=== PATIENT | male | born 1995 | race Caucasian/White ===

== ENCOUNTER 2018-08-26 07:44 | Emergency (ER) | payer MEDICAID ==
[~2018-08-26] VITALS: Ht 177.8 cm; Wt 68.2 kg
[2018-08-26 08:03] VITALS: BP 130/88
[2018-08-26] MEDS ORDERED: TETanus/Pertussis (Acell)/Diphther VAC/PF (Tdap-Adult) 0.5ml syringe IM ONE (08:45)
[2018-08-26] MEDS ORDERED: LIDOcaine 1% w/epiNEPHrine 1:200,000 30ml vial IM ONE (08:45)
== END 2018-08-26 10:52 | disposition home or self-care (01) ==
LOC: ER 07:45
DX: S61.412A Laceration without foreign body of left hand, initial encounter (principal); W18.39XA Other fall on same level, initial encounter; Y93.89 Activity, other specified; Y92.830 Public park as the place of occurrence of the external cause; Y99.8 Other external cause status
CPT/HCPCS: 12002; 90471; 90715; 99283; J3490

== ENCOUNTER 2019-06-22 23:07 | Emergency (ER) | payer MEDICAID, OTHER ==
[~2019-06-22] VITALS: Ht 177.8 cm; Wt 70.5 kg
[2019-06-22 23:08] VITALS: BP 125/66
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
--- NOTE | 2019-06-22 23:19 | NUR ---
OFFICER TOOK PT TO THE BR.
== END 2019-06-22 23:28 ==
LOC: ER 23:07
DX: Z02.89 Encounter for other administrative examinations (principal)
CPT/HCPCS: 99283

== ENCOUNTER 2021-10-24 12:21 | Emergency (ER) | payer MEDICAID ==
[~2021-10-24] VITALS: Ht 177.8 cm; Wt 68.2 kg
[2021-10-24 13:23] LABS: BASOPHILS % (AUTO) 0.7 % (0-1); EOSINOPHILS # (AUTO) 0.1 X10'3 (0-0.9); EOSINOPHILS % (AUTO) 0.7 % (0-6); HEMATOCRIT 48.3 % (42.0-52.0); HEMOGLOBIN 16.4 g/dl (14.0-17.9); LYMPHOCYTES # (AUTO) 2.7 X10'3 (1.1-4.8); MEAN CORPUSCULAR HEMOGLOBIN 29.7 PG (27.0-31.0); MEAN CORPUSCULAR VOLUME 87.2 FL (78-98); MEAN PLATELET VOLUME 9.7 FL (7.4-10.4); MONOCYTES # (AUTO) 0.7 X10'3 (0-0.9); MONOCYTES % (AUTO) 10.7 % (2-12); NEUTROPHILS # (AUTO) 3.5 X10'3 (1.8-7.7); NEUTROPHILS % (AUTO) 49.9 % (42-75); PLATELET COUNT 199 X10'3 (140-440); RED BLOOD COUNT 5.54 X10'6 (4.70-6.10); RED CELL DISTRIBUTION WIDTH 13.3 % (11.5-14.5)
[2021-10-24 13:23] LABS: CLARITY,URINE CLEAR (Clear); COLOR,URINE YELLOW (Yellow); GLUCOSE, URINE NEGATIVE (Neg); KETONES,URINE NEGATIVE (Neg); LEUKOCYTE ESTERASE ,URINE NEGATIVE (Neg); NITRITES, URINE NEGATIVE (Neg); OCCULT BLOOD,URINE NEGATIVE (Neg); PROTEIN,URINE TRACE mg/dl (Neg); UA COLLECTION TYPE CLN CATCH MIDSTREAM
[2021-10-24 13:29] LABS: BACTERIA,URINE NONE SEEN /HPF (Neg); FINE GRANULAR CAST 0-3 /LPF (NEGATIVE); MUCUS STRANDS MANY /LPF (Neg); RBC,URINE NONE SEEN /HPF (0-2); SQUAMOUS EPITHELIAL CELL,UR NONE SEEN /LPF (FEW); WBC,URINE 0-4 /HPF (0-4)
[2021-10-24 13:45] LABS: ALANINE AMINOTRANSFERASE 43 U/L (12-78); ALBUMIN 4.5 G/DL (3.4-5.0); ALBUMIN/GLOBULIN RATIO 1.2 (1.1-1.5); ALKALINE PHOSPHATASE 91 IU/L (46-116); AMYLASE 41 U/L (25-115); ANION GAP 8 (8-16); ASPARTATE AMINO TRANSFERASE 25 U/L (10-37); BILIRUBIN,TOTAL 0.3 MG/DL (0.1-1.0); BLOOD UREA NITROGEN 9 MG/DL (7-18); BUN/CREATININE RATIO 9.9 (5.4-32.0); CALCIUM 8.7 MG/DL (8.5-10.1); CHLORIDE 106 MMOL/L (99-107); CREATININE 0.91 MG/DL (0.60-1.10); GLUCOSE 101 MG/DL (70-104); LIPASE 62 U/L (73-393); POTASSIUM 4.3 MMOL/L (3.5-5.1); SODIUM 144 MMOL/L (135-145); TOTAL CARBON DIOXIDE 29.7 MMOL/L (24-32); TOTAL PROTEIN 8.2 G/DL (6.4-8.2); eGFR > 90 ML/MIN
[2021-10-24] MEDS ORDERED: PANT-47 PO (14:17)
[2021-10-24 14:22] VITALS: BP 129/74
== END 2021-10-24 14:42 | disposition home or self-care (01) ==
LOC: ER 12:21
DX: R10.12 Left upper quadrant pain (principal); Z90.49 Acquired absence of other specified parts of digestive tract; Z79.899 Other long term (current) drug therapy
CPT/HCPCS: 36415; 80053; 81001; 82150; 83690; 85025; 99283

== ENCOUNTER 2021-10-30 20:41 | Emergency (ER) | payer MEDICAID ==
[~2021-10-30 20:41] MED LIST: PANT-47 PO
== END 2021-10-30 21:30 | disposition left against medical advice (07) ==
LOC: ER 20:42
DX: R10.9 Unspecified abdominal pain (principal); Z53.21 Procedure and treatment not carried out due to patient leaving prior to being seen by health care provider

== ENCOUNTER 2024-03-20 20:00 | Emergency (ER) | payer MEDICAID ==
[~2024-03-20] VITALS: Ht 177.8 cm; Wt 81.8 kg
[2024-03-20 20:29] LABS: BASOPHILS # (AUTO) 0.1 X10'3 (0-0.2); BASOPHILS % (AUTO) 0.6 % (0-1); EOSINOPHILS % (AUTO) 0.4 % (0-6); HEMATOCRIT 44.9 % (42.0-52.0); HEMOGLOBIN 15.2 g/dl (14.0-17.9); LYMPHOCYTES # (AUTO) 3.1 X10'3 (1.1-4.8); LYMPHOCYTES % (AUTO) 31.1 % (21-51); MEAN CORPUSCULAR HEMOGLOBIN 29.4 PG (27.0-31.0); MEAN CORPUSCULAR HGB CONC 33.8 g/dL (33.0-36.5); MEAN CORPUSCULAR VOLUME 86.8 FL (78-98); MEAN PLATELET VOLUME 9.5 FL (7.4-10.4); MONOCYTES % (AUTO) 10.3 % (2-12); NEUTROPHILS # (AUTO) 5.7 X10'3 (1.8-7.7); NEUTROPHILS % (AUTO) 57.6 % (42-75); PLATELET COUNT 205 X10'3 (140-440); RED BLOOD COUNT 5.17 X10'6 (4.70-6.10); RED CELL DISTRIBUTION WIDTH 13.4 % (11.5-14.5)
[2024-03-20 20:47] LABS: ALANINE AMINOTRANSFERASE 40 U/L (12-78); ALBUMIN 4.9 G/DL (3.4-5.0); ALBUMIN/GLOBULIN RATIO 1.3 (1.1-1.5); ALKALINE PHOSPHATASE 89 IU/L (46-116); ANION GAP 10 (8-16); ASPARTATE AMINO TRANSFERASE 31 U/L (10-37); BILIRUBIN,TOTAL 0.5 MG/DL (0.1-1.0); BLOOD UREA NITROGEN 8 MG/DL (7-18); CALCIUM 9.5 MG/DL (8.5-10.1); CHLORIDE 102 MMOL/L (99-107); GLUCOSE 112 MG/DL (70-104); POTASSIUM 3.4 MMOL/L (3.5-5.1); SODIUM 139 MMOL/L (135-145); TOTAL CARBON DIOXIDE 26.8 MMOL/L (24-32); TOTAL PROTEIN 8.6 G/DL (6.4-8.2); eCRCL 143 ML/MIN; eGFR > 90 ML/MIN
[2024-03-20 20:58] LABS: PRO BRAIN NATRIURETIC PEPTIDE < 30 PG/ML (0-125)
[2024-03-21] MEDS ORDERED: MECL-226 PO (01:30)
[2024-03-21] MEDS: meclizine 12.5mg tablet PO ONE (01:47)
[2024-03-21 01:51] VITALS: BP 125/83; PULSE 68; RESP 18; TEMP 98.6; O2SAT 99
== END 2024-03-21 01:45 | disposition home or self-care (01) ==
LOC: ER 20:02
DX: R07.89 Other chest pain (principal); I49.8 Other specified cardiac arrhythmias; Z90.49 Acquired absence of other specified parts of digestive tract; Z79.899 Other long term (current) drug therapy
CPT/HCPCS: 36415; 71045; 80053; 83880; 84484; 85025; 93005; 99285; J8597

== ENCOUNTER 2025-01-12 05:49 | Emergency (ER) | payer MEDICAID ==
[~2025-01-12] VITALS: Ht 180.3 cm; Wt 90.0 kg
[~2025-01-12 05:49] MED LIST changes: +MECL-226 PO
[2025-01-12] MEDS: LIDOcaine 1% (10mg/ml) 2ml vial SQ ONE (07:15)
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
[2025-01-12] MEDS: LIDOcaine 1% 30ml preserv. free vial IJ STA (07:28)
[2025-01-12] MEDS: MIDAZolam 5mg/ml 2ml vial IV ONE (08:33)
[2025-01-12] MEDS: fentaNYL/PF 50MCG/1 ML 2ML syringe IV ONE (08:33)
--- NOTE | 2025-01-12 09:12 | RADIOLOGY REPORT ---
DI SHOULDER LTD 1 VIEW ONLY INDICATION: Shoulder Pain ,left post reduction TECHNICAL DATA: 1 views were obtained of the right shoulder. COMPARISON: DI SHOULDER LTD 1 VIEW ONLY on DOS: 01/12/25, DI SHOULDER, COMPLETE (MIN 2 VWS) on DOS: 01/12/25 FINDINGS: There is no fracture or focal bone abnormality. The glenohumeral joint is normally maintained. The acromioclavicular joint appears mildly .. The humeral head is not high riding. Adjacent soft tissues are within normal limits. IMPRESSION: Mild left AC joint separation, improved compared to prior.
--- NOTE | 2025-01-12 09:12 | RADIOLOGY REPORT ---
PROCEDURE: Right shoulder radiograph. INDICATION: BASELINE,RIGHT - comparison view TECHNIQUE: Single frontal view of the right shoulder COMPARISON: None. FINDINGS: Image is labeled right shoulder. There is no evidence of fracture. IMPRESSION: 1. No fracture in the right shoulder.
[2025-01-12 09:37] LABS: MEAN PLATELET VOLUME 9.7 FL (7.4-10.4); RED CELL DISTRIBUTION WIDTH 13.7 % (11.5-14.5)
[2025-01-12 09:54] LABS: CREATININE 0.77 MG/DL (0.60-1.10); ETHANOL 146 MG/DL (<10); TOTAL CARBON DIOXIDE 29.0 MMOL/L (24-32); eCRCL 152 ML/MIN; eGFR > 90 ML/MIN
--- NOTE | 2025-01-12 10:15 | RADIOLOGY REPORT ---
CLINICAL INFORMATION: 30 years old, Male; SHOULDER PAIN. TECHNIQUE: Axial CT images of the left shoulder were obtained without IV contrast. Coronal and sagittal reformatted images were obtained, reviewed, and stored. All CT scans at this medical facility are performed using dose modulation techniques as appropriate to a performed exam including the followin g: Automated exposure control was utilized; adjustment of the MA and/or KV according to patient size; and use of iterative reconstruction technique. CTDIvol = 19.18 mGy DLP = 438.91 mGy-cm COMPARISON: DI SHOULDER, COMPLETE (MIN 2 VWS) on DOS: 01/12/25 FINDINGS: There is no evidence of acute fracture. There is elevation of the distal left clavicle, with the inferior margin of the left clavicle just above the level of the superior margin of the acromion, consistent with type 3 acromioclavicular injury. Coracoclavicular distance is approximately 2 cm. There is adjacent soft tissue swelling, including near the deltoid and trapezial attachments to the distal clavicle. There are left axillary lymph nodes measuring less than 1 cm in short axis dimension with normal reniform shape and fatty marielena, likely reactive lymph nodes. No significant abnormality identified in the visualized portions of the left lung, although respiratory motion artifact limits evaluation for subtle findings in the visualized portions of the left lung. IMPRESSION: 1. Findings consistent with type 3 acromioclavicular injury as described above. 2. No evidence of acute fracture. 3. Additional findings as detailed above.
[2025-01-12] MEDS: ketorolac trometh 30MG/ML vial 30 MG/ML VIAL IV ONE (11:22)
[2025-01-12 11:25] VITALS: BP 120/70; PULSE 78; RESP 16; TEMP 98.2; O2SAT 98
[2025-01-12] MEDS ORDERED: IBUP600T52 PO (11:58)
[2025-01-12] MEDS ORDERED: ACET-2615 PO (11:58)
== END 2025-01-12 11:42 | disposition home or self-care (01) ==
LOC: ER 05:50
DX: S43.102A Unspecified dislocation of left acromioclavicular joint, initial encounter (principal); Z90.49 Acquired absence of other specified parts of digestive tract; Z72.89 Other problems related to lifestyle; Z79.899 Other long term (current) drug therapy; X58.XXXA Exposure to other specified factors, initial encounter; Y93.89 Activity, other specified; Y92.89 Other specified places as the place of occurrence of the external cause; Y99.8 Other external cause status
CPT/HCPCS: 23650; 36415; 73020; 73030; 73200; 80053; 80320; 84550; 85025; 85651; 86140; 96374; 96375; 99285; J1885; J2250; J3010; 94760; A4565; A4620